=== PATIENT | female | born 1965 | race Caucasian/White ===

== ENCOUNTER → 2017-03-11 | Outpatient (CLI) | payer OTHER | LOC: FIMAGING 13:59 | PROVIDERS: ATTEND Internal Medicine | DX: Z12.31 Encounter for screening mammogram for malignant neoplasm of breast (principal) | CPT/HCPCS: G0202 ==

== ENCOUNTER → 2017-03-17 | Outpatient (CLI) | payer OTHER | LOC: FIMAGING 14:12 | PROVIDERS: ATTEND Internal Medicine | DX: Z12.39 Encounter for other screening for malignant neoplasm of breast (principal); R92.8 Other abnormal and inconclusive findings on diagnostic imaging of breast ==

== ENCOUNTER → 2017-03-29 | Outpatient (CLI) | payer OTHER ==
[~2017-03-29] MED LIST: BUPIVACAINE 0.5% 10 ML SDV ONE; LIDO/EPI 1% **Not for Epidural 20 ML MDV ONE; LIDOCAINE 1% 300 MG/30 ML SDV ONE; THROMBIN (BOVINE) 5,000 UNIT VIAL TP ONE
== END ==
LOC: FIMAGING 07:08
PROVIDERS: ATTEND Internal Medicine
PROC: 0HBU3ZX Excision of Left Breast, Percutaneous Approach, Diagnostic (ICD-10-PCS; principal; 2017-03-29)
DX: N60.32 Fibrosclerosis of left breast (principal); N60.82 Other benign mammary dysplasias of left breast; N60.02 Solitary cyst of left breast
CPT/HCPCS: G0206

== ENCOUNTER → 2017-10-28 | Outpatient (CLI) | payer OTHER | LOC: FIMAGING 09:07 | PROVIDERS: ATTEND Internal Medicine | DX: N63.20 Unspecified lump in the left breast, unspecified quadrant (principal) ==

== ENCOUNTER 2017-11-26 07:40 | Day surgery (SDC) | payer OTHER ==
[~2017-11-26 07:40] MED LIST changes: -BUPIVACAINE 0.5% 10 ML SDV ONE; -LIDO/EPI 1% **Not for Epidural 20 ML MDV ONE; -LIDOCAINE 1% 300 MG/30 ML SDV ONE; -THROMBIN (BOVINE) 5,000 UNIT VIAL TP ONE; +ceFAZolin 2 GM/DEXTROSE 100 ML IV ONE; +ceFAZolin 2 GM/SWFI 2 GM/20 ML SYR IVP ONE
[2017-11-26] MEDS ORDERED: LR 1,000 ML IV ONE (08:18)
[2017-11-26] MEDS ORDERED: LIDOCAINE 1% 2 ML INJ ID PRN (08:18)
[2017-11-26] MEDS ORDERED: LIDOCAINE 1% 300 MG/30 ML SDV ONE ×2 (09:01→12:08)
--- NOTE | 2017-11-26 11:36 | PDANEPAE ---
ANE History of Present Illness breast biopsy, L ANE Past Medical History - Cardiovascular History Hx Hypertension: No Hx Arrhythmias: No Hx Chest Pain: No Hx Coronary Artery / Peripheral Vascular Disease: No Hx CHF / Valvular Disease: No Hx Palpitations: No - Pulmonary History Hx COPD: No Hx Asthma/Reactive Airway Disease: No Hx Recent Upper Respiratory Infection: No Hx Oxygen in Use at Home: No Hx Sleep Apnea: No Sleep Apnea Screening Result - Last Documented: Negative - Neurologic History Hx Cerebrovascular Accident: No Hx Seizures: No Hx Dementia: No - Endocrine History Hx Diabetes: No Hypothyroid: Yes Endocrine History Comment: HYPOTHYROID-ON RX - Renal History Hx Renal Disorders: No - Liver History Hx Hepatic Disorders: No - Neurological & Psychiatric Hx Hx Neurological and Psychiatric Disorders: Yes Neurological / Psychiatric History Comment: DEPRESSION;. RECENT BACK INJURY -L SCIATIC PAIN RADIATES DOWN L LEG. - Cancer History Hx Cancer: No - Congenital Disorder History Hx Congenital Disorders: No - GI History Hx Gastrointestinal Disorders: Yes Gastrointestinal History Comment: DIVERTICULITIS-CONTROLLED W/DIET - Other Health History Other Health History: L BREAST MASS - Chronic Pain History Chronic Pain: No - Surgical History Prior Surgeries: PARTIAL HYSTERECTOMY . ORIF CLAVICLE. TONSILLECTOMY ANE Review of Systems Review of Systems: - Exercise capacity METS (RN): 5 METS ANE Patient History - Allergies Allergies/Adverse Reactions: No Known Allergies Allergy (Verified 11/23/17 14:40) - Home Medications Home Medications: Cyclobenzaprine 11/23/17 [Last Taken 11/23/17] Levothyroxine 11/23/17 [Last Taken 11/25/17] Liothyronine Sodium 11/23/17 [Last Taken 11/25/17] Oxycodone HCl 11/23/17 [Last Taken 11/25/17] Venlafaxine HCl 11/23/17 [Last Taken 11/25/17] buPROPion 11/23/17 [Last Taken 11/25/17] - NPO status NPO Since - Liquids (Date): 11/26/17 NPO Since - Liquids (Time): 07:45 NPO Since - Solids (Date): 11/25/17 NPO Since - Solids (Time): 19:00 - Anes Hx Anes Hx: no prior problems - Smoking Hx Smoking Status: Never smoked Marijuana use: No - Alcohol Use Alcohol Use: Rarely - Family Anes Hx Family Anes Hx: none ANE Labs/Vital Signs - Vital Signs Blood Pressure: 126/90 Heart Rate: 73 Respiratory Rate: 16 O2 Sat (%): 95 Height: 170.18 cm Weight: 65.771 kg ANE Physical Exam - Airway Neck exam: FROM Mallampati Score: Class 1 Mouth exam: normal dental/mouth exam - Pulmonary Pulmonary: clear to auscultation - Cardiovascular Cardiovascular: regular rate and rhythym - ASA Status ASA Status: II ANE Anesthesia Plan Anesthesia Plan: GA with mask
[2017-11-26] MEDS ORDERED: BUPIVACAINE 0.25% 30 ML SDV ONE (11:40)
[2017-11-26] MEDS ORDERED: MIDAZOLAM 2 MG/2 ML VIAL IVP ONE (11:57)
[2017-11-26] MEDS ORDERED: MIDAZOLAM 2 MG/2 ML VIAL ONE (11:59)
[2017-11-26] MEDS ORDERED: PROPOFOL 200 MG/20 ML VIAL ONE ×3 (12:07→12:54)
[2017-11-26] MEDS ORDERED: fentaNYL 100 MCG/2 ML INJ ONE ×2 (12:07→13:36)
[2017-11-26] MEDS ORDERED: HYDROCODONE/APAP 5/325 TAB PO PRN (12:49)
[2017-11-26] MEDS ORDERED: fentaNYL 100 MCG/2 ML INJ IVP PRN (12:49)
[2017-11-26] MEDS ORDERED: oxyCODONE IR 5 MG TAB PO PRN (12:49)
[2017-11-26] MEDS ORDERED: ACETAMINOPHEN 500 MG TAB PO PRN (12:49)
[2017-11-26] MEDS ORDERED: NALOXONE HCL 0.4 MG/ML INJ IVP PRN (12:49)
[2017-11-26] MEDS ORDERED: ONDANSETRON 4 MG/2 ML VIAL IVP PRN (12:49)
--- NOTE | 2017-11-26 13:14 | PDHPUP ---
History & Physical Update H&P update statement: This history and physical update is based on an assessment of the patient which was completed after admission or registration (within 24 hours), but prior to the surgery/procedure. H&P update: H&P reviewed & patient examined, no change in patient's condition since H&P completed
[2017-11-26] MEDS ORDERED: ONDANSETRON DISINTEGRATING 4 MG TAB PO PRN (13:15)
--- NOTE | 2017-11-26 13:15 | POSTOPPROG ---
Post Op Note Date of Operation: 11/26/17 Surgeon: Raffaele Partida (, FACS) Anesthesiologist: Aly Herr MD Anesthesia: Other (Specify) (MAC) Pre-op Diagnosis: left breast mass Post-op Diagnosis: same Procedure: left breast biopsy with pre-op NL Findings: firm nodule near the tip of the wire Inf/Abcess present in the surg proc area at time of surgery?: No
[2017-11-26] MEDS ORDERED: oxyCODONE IR 5 MG TAB ONE (13:36)
--- NOTE | 2017-11-26 14:25 | POSTANESTH ---
Post Anesthetic Evaluation Cardiovascular Status: Normal, Stable Respiratory Status: Normal, Stable Level of Consciousness/Mental Status: Can Participate in Eval Pain Control: Adequate, Prn Tx Ordered Nausea/Vomiting Control: Adequate, Prn Tx Ordered Complications Possibly Related to Anesthesia: None Noted
[2017-11-26 15:01] VITALS: BP 126/83
--- NOTE | 2017-11-27 01:36 | GOP ---
[f rep st] OPERATIVE REPORT DATE OF OPERATION: 11/26/2017 SURGEON: Raffaele Partida MD, FACS ANESTHESIA: Monitored anesthesia care, Aly Herr MD. PREOPERATIVE DIAGNOSIS: Left breast mass status post ultrasound-guided core needle biopsy with discordant pathologic findings. POSTOPERATIVE DIAGNOSIS: Left breast mass status post ultrasound-guided core needle biopsy with discordant pathologic findings. PROCEDURE PERFORMED: Left excisional breast biopsy with preoperative ultrasound -guided needle localization by Dr. Ha Atkinson. FINDINGS: Firm, dense, fibrocystic-appearing breast tissue with a palpable nodule within the specimen adjacent to the tip and shaft of the wire, submitted to Pathology for permanent section. DESCRIPTION OF PROCEDURE: After informed consent was obtained, the patient was brought to the operating room and placed under deep sedation and monitored by Dr. Herr. The left breast was prepped and draped in usual fashion. The patient had a Kopans wire exiting the breast at the 2 o'clock position, directed medially, slightly cephalad, and deep from the entry site. Ultrasound images preoperatively confirmed a persistent nodule in the area of the previous biopsy. Before proceeding, a time-out and identification of the patient was performed. 0.25% Marcaine was used to infiltrate the areolar border and the deep breast tissues. A circumareolar incision was made and carried through skin and subcutaneous tissues. Dissection was carried out cephalad and the wire intercepted into the incision. The breast tissue and the shaft and tip of the wire were excised to a distance of approximately 10 mm, and a palpable nodule was noted near the shaft and tip of the wire. After the breast tissue around the shaft and tip of the wire were excised. The specimen was removed from the field and again palpated, noted to contain a small nodule along the medial aspect. The specimen was submitted for permanent section. Hemostasis was secured within the cavity using cautery. Subcutaneous tissues were approximated with 3-0 Vicryl suture. Skin was closed with 4-0 Monocryl suture in a subcuticular fashion. Topical Dermabond was applied. The patient was returned extubated to the recovery room in satisfactory condition. /[id number]/MODL MTDD
== END 2017-11-26 14:55 | disposition home or self-care (01) ==
LOC: FIMAGING 07:40 → EDSTATUS 11:30 → FIMAGING 14:55
PROVIDERS: ATTEND Surgery
PROC: 0HBU3ZX Excision of Left Breast, Percutaneous Approach, Diagnostic (ICD-10-PCS; principal; 2017-11-26 12:00)
DX: N63.20 Unspecified lump in the left breast, unspecified quadrant (principal); Z80.3 Family history of malignant neoplasm of breast
CPT/HCPCS: J0690; J2250; J2704; J3010

== ENCOUNTER → 2017-12-15 | Outpatient (CLI) | payer OTHER ==
[~2017-12-15] MED LIST changes: +GADOBUTROL 10 ML VIAL IVP ONE; -ceFAZolin 2 GM/DEXTROSE 100 ML IV ONE; -ceFAZolin 2 GM/SWFI 2 GM/20 ML SYR IVP ONE
== END ==
LOC: FIMAGING 08:21
PROVIDERS: ATTEND Surgery
DX: C50.912 Malignant neoplasm of unspecified site of left female breast (principal)
CPT/HCPCS: 0159T; 77059; A9585; C8908

== ENCOUNTER 2017-12-27 06:58 | Day surgery (SDC) | payer OTHER ==
[2017-12-27] MEDS ORDERED: LR 1,000 ML IV ONE (08:12)
[2017-12-27] MEDS ORDERED: LIDOCAINE 1% 2 ML INJ ID PRN (08:12)
[2017-12-27] MEDS ORDERED: BUPIVACAINE/EPI 0.5% 30 ML SDV ONE (08:33)
--- NOTE | 2017-12-27 09:16 | PDANEPAE ---
ANE Past Medical History - Cardiovascular History Hx Hypertension: No Hx Arrhythmias: No Hx Chest Pain: No Hx Coronary Artery / Peripheral Vascular Disease: No Hx CHF / Valvular Disease: No Hx Palpitations: No - Pulmonary History Hx COPD: No Hx Asthma/Reactive Airway Disease: No Hx Recent Upper Respiratory Infection: No Hx Oxygen in Use at Home: No Hx Sleep Apnea: No Sleep Apnea Screening Result - Last Documented: Negative - Neurologic History Hx Cerebrovascular Accident: No Hx Seizures: No Hx Dementia: No - Endocrine History Hx Diabetes: No Endocrine History Comment: HYPOTHYROID-ON RX - Renal History Hx Renal Disorders: No - Liver History Hx Hepatic Disorders: No - Neurological & Psychiatric Hx Hx Neurological and Psychiatric Disorders: Yes Neurological / Psychiatric History Comment: DEPRESSION;. RECENT BACK INJURY -L SCIATIC PAIN RADIATES DOWN L LEG. - Cancer History Hx Cancer: No - Congenital Disorder History Hx Congenital Disorders: No - GI History Hx Gastrointestinal Disorders: Yes Gastrointestinal History Comment: DIVERTICULITIS-CONTROLLED W/DIET - Other Health History Other Health History: L BREAST MASS - Chronic Pain History Chronic Pain: No - Surgical History Prior Surgeries: L BREAST BX. PARTIAL HYSTERECTOMY . ORIF CLAVICLE. TONSILLECTOMY ANE Review of Systems Review of Systems: - Exercise capacity METS (RN): 5 METS ANE Patient History - Allergies Allergies/Adverse Reactions: diclofenac [From Voltaren] Allergy (Unverified 12/27/17 08:23) - Home Medications Home Medications: Levothyroxine 11/23/17 [Last Taken 12/27/17 0600] Liothyronine Sodium 11/23/17 [Last Taken 12/27/17 0600] Venlafaxine HCl 11/23/17 [Last Taken 11/25/17] buPROPion 11/23/17 [Last Taken 11/25/17] ADVIL ALLERGY SINUS CAPLET 12/27/17 [Last Taken 12/27/17 0600] - NPO status NPO Since - Liquids (Date): 12/26/17 NPO Since - Liquids (Time): 20:00 NPO Since - Solids (Date): 12/26/17 NPO Since - Solids (Time): 20:00 - Smoking Hx Smoking Status: Never smoked - Family Anes Hx Family Hx Anesthesia Complications: NONE ANE Labs/Vital Signs - Vital Signs Blood Pressure: 130/91 Heart Rate: 65 Respiratory Rate: 18 O2 Sat (%): 94 Height: 170.18 cm Weight: 65.771 kg ANE Physical Exam - Airway Neck exam: FROM Mallampati Score: Class 1 Mouth exam: normal dental/mouth exam - Pulmonary Pulmonary: no respiratory distress, no rales or rhonchi, clear to auscultation - Cardiovascular Cardiovascular: regular rate and rhythym, no murmur, rub, or gallop - ASA Status ASA Status: III ANE Anesthesia Plan Anesthesia Plan: GA w LMA
[2017-12-27] MEDS ORDERED: BUPIVACAINE 0.25% 30 ML SDV ONE (09:22)
[2017-12-27] MEDS ORDERED: EPINEPHrine 1 MG/ML INJ ONE (09:23)
[2017-12-27] MEDS ORDERED: PROPOFOL 200 MG/20 ML VIAL ONE ×2 (09:40)
[2017-12-27] MEDS ORDERED: fentaNYL 100 MCG/2 ML INJ ONE ×2 (09:40→11:52)
[2017-12-27] MEDS ORDERED: MIDAZOLAM 2 MG/2 ML VIAL ONE (09:40)
[2017-12-27] MEDS ORDERED: PROMETHAZINE HCL 25 MG/ML INJ IVP PRN (10:12)
[2017-12-27] MEDS ORDERED: ALBUTEROL 3 ML DEYVIAL IH PRN (10:12)
[2017-12-27] MEDS ORDERED: ONDANSETRON 4 MG/2 ML VIAL IVP PRN (10:12)
[2017-12-27] MEDS ORDERED: NALOXONE HCL 0.4 MG/ML INJ IVP PRN (10:12)
[2017-12-27] MEDS ORDERED: DEXAMETHASONE 4 MG/ML VIAL IVP PRN (10:12)
[2017-12-27] MEDS ORDERED: MEPERIDINE 25 MG/0.5 ML AMP IVP PRN (10:12)
[2017-12-27] MEDS ORDERED: ACETAMINOPHEN 500 MG TAB PO PRN ×2 (10:12→11:18)
[2017-12-27] MEDS ORDERED: HYDROCODONE/APAP 5/325 TAB PO PRN (10:12)
[2017-12-27] MEDS ORDERED: LR 500 ML IV PRN (10:12)
[2017-12-27] MEDS ORDERED: LIDOCAINE 2% 5 ML SDV ONE (10:27)
[2017-12-27] MEDS ORDERED: ePHEDrine SULFATE 25 MG/5 ML SYR ONE (10:27)
[2017-12-27] MEDS ORDERED: GLYCOPYRROLATE 0.2 MG/1 ML VIAL ONE (10:27)
[2017-12-27] MEDS ORDERED: ATROPINE SULFATE 1 MG/ML VIAL ONE (10:27)
[2017-12-27] MEDS ORDERED: RANITIDINE 50 MG/2 ML VIAL ONE (10:28)
[2017-12-27] MEDS ORDERED: METOCLOPRAMIDE 10 MG/2 ML VIAL ONE (10:28)
[2017-12-27] MEDS ORDERED: ONDANSETRON 4 MG/2 ML VIAL ONE (10:28)
[2017-12-27] MEDS ORDERED: ONDANSETRON DISINTEGRATING 4 MG TAB PO PRN (11:17)
[2017-12-27] MEDS ORDERED: OXYCODONE/APAP 5/325 TAB PO PRN (11:17)
--- NOTE | 2017-12-27 11:17 | POSTOPPROG ---
Post Op Note Date of Operation: 12/27/17 Surgeon: Raffaele Partida (, FACS) Anesthesiologist: Sabi Muñoz MD Anesthesia: LMA Pre-op Diagnosis: left breast cancer Post-op Diagnosis: same Procedure: left breast sentinel node mapping and superficial left ALND Findings: 1 sentinel node +, 2 non-sentinel nodes for permanent Inf/Abcess present in the surg proc area at time of surgery?: No Specimen(s): left axillary sentinel nodes left axillary non-sentinel nodes
[2017-12-27] MEDS: fentaNYL 100 MCG/2 ML INJ IVP PRN ×3 (11:54→12:15)
[2017-12-27] MEDS ORDERED: HYDROCODONE/APAP 5/325 TAB ONE (12:26)
[2017-12-27 13:00] VITALS: BP 136/90
--- NOTE | 2017-12-27 21:11 | POSTANESTH ---
Post Anesthetic Evaluation Cardiovascular Status: Normal, Stable, Similar to Pre-Op Cond Respiratory Status: Normal, Stable, Similar to Pre-op Cond. Level of Consciousness/Mental Status: Mildly Sleepy, Arousable Pain Control: Adequate, Prn Tx Ordered Nausea/Vomiting Control: Adequate, Prn Tx Ordered Complications Possibly Related to Anesthesia: None Noted
== END 2017-12-27 13:15 | disposition home or self-care (01) ==
LOC: FSGY 06:58
PROVIDERS: ATTEND Surgery
PROC: 07B63ZX Excision of Left Axillary Lymphatic, Percutaneous Approach, Diagnostic (ICD-10-PCS; principal; 2017-12-27 09:30)
DX: C50.412 Malignant neoplasm of upper-outer quadrant of left female breast (principal); Z17.0 Estrogen receptor positive status [ER+]
CPT/HCPCS: 38505; 78195; A9520; J0171; J0461; J2250; J2405; J2704; J2765; J2780; J3010

== ENCOUNTER → 2018-05-05 | Outpatient (CLI) | payer OTHER | LOC: CIMAGING 11:31 | PROVIDERS: ATTEND Orthopaedic Surgery Hand Surgery | DX: M25.531 Pain in right wrist (principal) | CPT/HCPCS: 73110-PO ==

== ENCOUNTER → 2018-05-10 | Outpatient (CLI) | payer OTHER | LOC: FIMAGING 14:28 | PROVIDERS: ATTEND Internal Medicine Hematology & Oncology | DX: Z13.820 Encounter for screening for osteoporosis (principal); M85.89 Other specified disorders of bone density and structure, multiple sites; E03.9 Hypothyroidism, unspecified; Z78.0 Asymptomatic menopausal state; Z85.3 Personal history of malignant neoplasm of breast ==

== ENCOUNTER → 2018-09-07 | Outpatient (CLI) | payer OTHER | LOC: FIMAGING 13:41 | PROVIDERS: ATTEND Surgery | DX: Z12.31 Encounter for screening mammogram for malignant neoplasm of breast (principal); Z85.3 Personal history of malignant neoplasm of breast ==